=== PATIENT | male | born 1950 | race Caucasian/White ===

== ENCOUNTER 2020-08-15 08:43 | Day surgery (SDC) | payer MEDICARE ==
[2020-08-07 16:25] LABS: BASOPHILS % (AUTO) 0.5 % (0-1); EOSINOPHILS # (AUTO) 0.1 X10'3 (0-0.9); EOSINOPHILS % (AUTO) 0.9 % (0-6); LYMPHOCYTES # (AUTO) 2.5 X10'3 (1.1-4.8); LYMPHOCYTES % (AUTO) 29.5 % (21-51); MEAN CORPUSCULAR HEMOGLOBIN 29.4 PG (27.0-31.0); MEAN CORPUSCULAR HGB CONC 33.6 g/dL (33.0-36.5); MEAN CORPUSCULAR VOLUME 87.4 FL (78-98); MEAN PLATELET VOLUME 8.4 FL (7.4-10.4); MONOCYTES # (AUTO) 0.7 X10'3 (0-0.9); NEUTROPHILS # (AUTO) 5.1 X10'3 (1.8-7.7); NEUTROPHILS % (AUTO) 61.1 % (42-75); PRE OP HEMATOCRIT 48.2 % (42.0-52.0); PRE OP HEMOGLOBIN 16.2 g/dL (14.0-17.9); PRE OP PLATELET COUNT 218 X10'3 (140-440); RED BLOOD COUNT 5.52 X10'6 (4.70-6.10); RED CELL DISTRIBUTION WIDTH 13.8 % (11.5-14.5)
[2020-08-07 16:42] LABS: ALBUMIN 4.2 G/DL (3.4-5.0); ALBUMIN/GLOBULIN RATIO 1.2 (1.1-1.5); ALKALINE PHOSPHATASE 67 IU/L (46-116); BLOOD UREA NITROGEN 14 MG/DL (7-18); BUN/CREATININE RATIO 12.3 (5.4-32.0); CHLORIDE 101 MMOL/L (99-107); CREATININE 1.14 MG/DL (0.60-1.10); PRE OP ALT 26 U/L (30-65); PRE OP ANION GAP 10 (8-16); PRE OP AST 19 U/L (10-37); PRE OP BILIRUB, TOTAL 0.6 MG/DL (0.0-1.0); PRE OP GLUCOSE 101 MG/DL (70-104); PRE OP SODIUM 141 MMOL/L (135-145); TOTAL CARBON DIOXIDE 30.2 MMOL/L (24-32); TOTAL PROTEIN 7.7 G/DL (6.4-8.2); eGFR 64 ML/MIN
[2020-08-07 16:48] LABS: PRE OP POTASSIUM 3.2 MMOL/L (3.4-5.1)
[~2020-08-15] VITALS: Ht 177.8 cm; Wt 85.7 kg
[~2020-08-15 08:43] MED LIST: AMOX-441 PO; ATEN1TAB3 PO; BUPIVAcaine/PF 2.5mg/ml (0.25%) 10ml vial ONE; LIDOcaine 1% 30ml preserv. free vial ONE; atenolol 50mg tablet PO ONE; ceFAZolin 2gm in dextrose, iso 50 ML IV ONE; famotidine 20mg tablet PO ONE; ringers solution, lacted 1,000 ML IV SCH
[2020-08-15 08:55] VITALS: BP 135/79
[2020-08-15] MEDS ORDERED: midazolam 2 mg/2 ml injection ONE (11:45)
[2020-08-15] MEDS ORDERED: fentaNYL/PF 50MCG/1 ML 2ML syringe ONE (11:45)
[2020-08-15] MEDS ORDERED: ketorolac trometh. 30mg/ml inj. ONE (11:45)
[2020-08-15 12:31] VITALS: BP_SYST 110; BP_SYST 117; BP_DIAS 75; BP_DIAS 77
--- NOTE | 2020-08-15 12:31 | NUR ---
Received from OR via , accompanied by Anesthesiologist DR TSANG and report given by Anesthesiolgist. AWAKENS TO VOICE. VITALS STABLE. DRESSING DI. KRISTIAN PAIN.
[2020-08-15 12:41] VITALS: BP 119/74
[2020-08-15 12:51] VITALS: BP 115/76
--- NOTE | 2020-08-15 13:11 | NUR ---
AWAKE AND ORIENTED. VITALS STABLE. DRESSING DI. KRISTIAN PAIN. HOME WITH HIS AT THIS TIME.
== END 2020-08-15 13:11 | disposition home or self-care (01) ==
LOC: PAS 08:43
PROVIDERS: ATTEND Orthopaedic Surgery Hand Surgery
DX: D21.11 Benign neoplasm of connective and other soft tissue of right upper limb, including shoulder (principal); M79.644 Pain in right finger(s); M12.241 Villonodular synovitis (pigmented), right hand; Z20.822 Contact with and (suspected) exposure to COVID-19; Z79.899 Other long term (current) drug therapy; I10 Essential (primary) hypertension
CPT/HCPCS: 26113; 36415; 80053; 82948; 85025; 87635; 93005; J1885; J2001; J2250; J3010; J3490; J7120; 88305; A4215; A4618; A7000